=== PATIENT | female | born 1990 | race Caucasian/White ===

== ENCOUNTER 2017-12-24 14:08 | Inpatient (IN) | payer OTHER ==
[2017-12-24] VITALS (10 sets, daily range): BP systolic 109–149; BP diastolic 64–87
[~2017-12-24] VITALS: Ht 162.6 cm; Wt 91.1 kg
[2017-12-24] MEDS ORDERED: PRENATAL TABLE1 EAC3 PO (14:37)
[2017-12-24 15:33] LABS: BASOPHIL (%) 0.2 % (0-1); EOSINOPHIL (%) 0.3 % (0-5); HEMATOCRIT 32.4 % (36.0-46.0); HEMOGLOBIN 10.8 G/DL (11.9-15.5); IMMATURE GRANULOCYTE (%) 0.7 % (0.0-0.7); LYMPHOCYTE (%) 16.1 % (15-42); LYMPHOCYTE COUNT 2.1 K/uL (1.0-2.8); MCHC 33.3 G/DL (30.0-36.0); MCV 87.1 FL (83-99); MONOCYTE (%) 7.4 % (3-12); MONOCYTE COUNT 0.9 K/uL (0-0.8); NEUTROPHIL (%) 75.3 % (45-76); NEUTROPHIL COUNT 9.6 K/uL (1.8-6.4); PLATELET COUNT 439 K/uL (156-360); RBC DIS.WIDTH-CV 13.3 % (11.8-14.6); RED BLOOD COUNT 3.72 M/uL (3.80-5.20); WHITE BLOOD COUNT 12.7 K/uL (4.1-10.2)
[2017-12-25] VITALS (13 sets, daily range): BP systolic 108–172; BP diastolic 61–84
[2017-12-25] MEDS ORDERED: IBUPROFEN800 MG PO (02:38)
[2017-12-26 07:33] VITALS: BP 101/56
[2017-12-26 14:33] VITALS: BP 117/84
== END 2017-12-26 18:00 | disposition home or self-care (01) | DRG 775 ==
LOC: LDRP-OP 14:08 → 2WEST 14:09 → LDRP-OP 01-29 09:13
PROVIDERS: Advanced Practice Midwife
DX: O99.344 Other mental disorders complicating childbirth (principal); F41.9 Anxiety disorder, unspecified; O70.1 Second degree perineal laceration during delivery; Z3A.38 38 weeks gestation of pregnancy; Z37.0 Single live birth
CPT/HCPCS: 85025; C1755; G0378; J0595; J2590; J7120; Q0169